=== PATIENT | female | born 1945 | race Caucasian/White ===

== ENCOUNTER → 2020-09-28 11:03 | Outpatient (CLI) | payer MEDICARE, OTHER, SELFPAY ==
--- NOTE | ~2020-09-28 | DEXA_ITS ---
Bone Density Report Name: Elva Mendoza Age: 75 Sex: Female Ethnicity: White Date of : 1945 Indication: osteopenia; postmenopausal Referring Provider: RENATO, OPAL Lo Study: Bone densitometry was performed. Exam Date: September 28, 2020 Accession number: [id number] Bone Density: Region BMD T-score Z-score Classification AP Spine (L1-L4) 0.844 -1.8 0.5 Osteopenia Femoral Neck (Left) 0.603 -2.2 -0.2 Osteopenia Total Hip (Left) 0.692 -2.0 -0.4 Osteopenia Femoral Neck (Right) 0.647 -1.8 0.2 Osteopenia Total Hip (Right) 0.761 -1.5 0.2 Osteopenia Total Hip Mean 0.727 -1.8 -0.1 Osteopenia World Health Organization criteria for BMD impression classify patients as: Normal (T-score at or above -1.0), Osteopenia (T-score between -1.0 and -2.5), or Osteoporosis (T-score at or below -2.5). 10-year Fracture Risk(1): Major Osteoporotic Fracture 13% Hip Fracture 3.3% Reported Risk Factors: [place] (), Neck BMD=0.603, BMI=27.7 (1) FRAX(R) Version 3.08. Fracture probability calculated for an untreated patient. Fracture probability may be lower if the patient has received treatment. Previous Exams: Region Exam Age BMD T-score BMD Change BMD Change Date g/cm2 vs Baseline vs Previous AP Spine(L1-L4) 09/28/2020 75 0.844 -1.8 0.025* 0.024* 08/13/2018 73 0.819 -2.1 0.000 -0.003 04/15/2015 70 0.822 -2.0 0.003 -0.026* 03/20/2013 67 0.848 -1.8 0.029* -0.016 12/13/2010 65 0.864 -1.7 0.045* 0.031* 07/09/2008 63 0.833 -1.9 0.014 0.014 11/08/2004 59 0.819 -2.1 Total Hip(Left) 09/28/2020 75 0.692 -2.0 -0.088* 0.004 08/13/2018 73 0.689 -2.1 -0.092* -0.037* 04/15/2015 70 0.726 -1.8 -0.055* -0.033* 03/20/2013 67 0.758 -1.5 -0.022 0.019 12/13/2010 65 0.740 -1.7 -0.041* 0.009 07/09/2008 63 0.731 -1.7 -0.050* -0.050* 11/08/2004 59 0.781 -1.3 Total Hip(Right) 09/28/2020 75 0.761 -1.5 -0.030* 0.013 08/13/2018 73 0.748 -1.6 -0.043* -0.018 04/15/2015 70 0.766 -1.4 -0.025 0.021 03/20/2013 67 0.745 -1.6 -0.045* -0.018 12/13/2010 65 0.763 -1.5 -0.027* -0.043* 07/09/2008 63 0.807 -1.1 0.016 0.016 11/08/2004 59 0.791 -1.2 *Denotes significance at 95% confidence l
== END ==
PROVIDERS: PCP Internal Medicine; Visit Provider Internal Medicine
DX: N95.9 Unspecified menopausal and perimenopausal disorder (principal); M85.88 Other specified disorders of bone density and structure, other site; M85.852 Other specified disorders of bone density and structure, left thigh; M85.851 Other specified disorders of bone density and structure, right thigh
CPT/HCPCS: 77080